=== PATIENT | female | born 1995 | race Caucasian/White ===

== ENCOUNTER 2018-03-06 20:38 | Emergency (ER) | payer OTHER ==
--- NOTE | 2018-03-06 20:46 | PDOC ---
History of Present Illness - General History Source: Patient Exam Limitations: No Limitations - History of Present Illness Initial Comments: 03/06/18 21:18 The patient is a 22 year old female, with a PMH of polycystic ovary syndrome and hypothyroidism , who presents to the emergency department for evaluation of an allergic reaction that occurred about 3 hours ago. The patient states she had apple and pineapple juice today and noticed a sudden onset of heartburn accompanied with generalized maculopapular diffuse rash to the upper and lower extremity, pruritic in nature. She then had facial erythema and edema develop. The patient reports she took 2 tablets of Benadryl (50 mg total) and noticed no relief. Denies any allergies in the past. The patient denies chest pain, headache and dizziness.Denies fever, chills, nausea, vomit, diarrhea and constipation. Allergies: NKDA Past surgical history: None reported Social history: Denies tobacco, alcohol and recreational use PCP: None reported <Jaun Peoples - Last Filed: 03/06/18 21:47> <Diana Sainz - Last Filed: 03/07/18 00:48> - General Chief Complaint: Allergic Reaction Stated Complaint: ALLERGIC REACTION Time Seen by Provider: 03/06/18 20:46 Past History <Jaun Peoples - Last Filed: 03/06/18 21:47> - Past Medical History COPD: No - Suicide/Smoking/Psychosocial Hx Smoking History: Never smoked Hx Alcohol Use: No Drug/Substance Use Hx: No <Diana Sainz - Last Filed: 03/07/18 00:48> - Past Medical History Allergies/Adverse Reactions: Allergies Allergy/AdvReac Type Severity Reaction Status Date / Time pineapple Allergy Severe Swelling Verified 03/06/18 21:10 Home Medications: Ambulatory Orders Levothyroxine [Synthroid -] 75 mcg PO DAILY 03/06/18 Norethindrone-E.estradiol-Iron [Loestrin Fe 1.5-30 Tablet] 1 each PO DAILY 03/06 metFORMIN HCL [Metformin HCl] 500 mg PO BID 03/06/18 Famotidine [Pepcid] 40 mg PO DAILY #10 tablet 03/07/18 Methylprednisolone [Medrol Dose Blu] 4 mg PO ASDIR #21 tablet 03/07/18 Review of Systems - Review of Systems Able to Perform ROS?: Yes Comments:: 03/06/18 21:18 GENERAL/CONSTITUTIONAL: No fever or chills. No weakness. HEAD, EYES, EARS, NOSE AND THROAT: +Sore throat. No change in vision. No ear pain or discharge. CARDIOVASCULAR: +SOB. No chest pain RESPIRATORY: +Wheezing. No cough or hemoptysis. GASTROINTESTINAL: No nausea, vomiting, diarrhea or constipation. GENITOURINARY: No dysuria, frequency, or change in urination. MUSCULOSKELETAL: No joint or muscle swelling or pain. No neck or back pain. SKIN: +Diffused generalized rash NEUROLOGIC: No headache, vertigo, loss of consciousness, or change in strength/ sensation. ENDOCRINE: No increased thirst. No abnormal weight change. HEMATOLOGIC/LYMPHATIC: No anemia, easy bleeding, or history of blood clots. ALLERGIC/IMMUNOLOGIC: No hives or skin allergy. <Jaun Peoples - Last Filed: 03/06/18 21:47> *Physical Exam - Vital Signs Last Vital Signs Temp Pulse Resp BP Pulse Ox 98.1 F 110 H 18 156/89 99 03/06/18 20:39 03/06/18 21:13 03/06/18 21:13 03/06/18 20:39 03/06/18 21:13 - Physical Exam Comments: 03/06/18 21:19 GENERAL: Awake, alert, and fully oriented, in no acute distress HEAD: No signs of trauma EYES: PERRLA, EOMI, sclera anicteric, conjunctiva clear ENT: +Mild edema to the midline uvula without asymmetry. Auricles normal inspection, hearing grossly normal, nares patent. NECK: Normal ROM, supple, no lymphadenopathy, JVD, or masses LUNGS: +Scatter bilateral expiratory wheezing. Breath sounds equal, clear to auscultation bilaterally. No crackles HEART: Regular rate and rhythm, normal S1 and S2, no murmurs, rubs or gallops ABDOMEN: Soft, nontender, normoactive bowel sounds. No guarding, no rebound. No masses EXTREMITIES: Normal range of motion, no edema. No clubbing or cyanosis. No cords, erythema, or tenderness NEUROLOGICAL: Cranial nerves II through XII grossly intact. Normal speech, normal gait SKIN: +Moderate generalized edema with erythema and periorbital edema. Maculopapular rash to the upper extremity, anterior and posterior thorax . <Jaun Peoples - Last Filed: 03/06/18 21:47> - Vital Signs Last Vital Signs Temp Pulse Resp BP Pulse Ox 98.1 F 118 H 18 156/89 100 03/06/18 20:39 03/06/18 20:39 03/06/18 20:39 03/06/18 20:39 03/06/18 20:39 <Diana Sainz - Last Filed: 03/07/18 00:48> Moderate Sedation - Procedure Monitoring Vital Signs: Procedure Monitoring Vital Signs Temperature 98.1 F 03/06/18 20:39 Pulse Rate 110 H 03/06/18 21:13 Respiratory Rate 18 03/06/18 21:13 Blood Pressure 156/89 03/06/18 20:39 O2 Sat by Pulse Oximetry (%) 99 03/06/18 21:13 <Jaun Peoples - Last Filed: 03/06/18 21:47> - Procedure Monitoring Vital Signs: Procedure Monitoring Vital Signs Temperature 98.1 F 03/06/18 20:39 Pulse Rate 118 H 03/06/18 20:39 Respiratory Rate 18 03/06/18 20:39 Blood Pressure 156/89 03/06/18 20:39 O2 Sat by Pulse Oximetry (%) 100 03/06/18 20:39 <Diana Sainz - Last Filed: 03/07/18 00:48> ED Treatment Course - Medications Given in the ED: ED Medications Discontinued Medications Generic Name Dose Route Start Last Admin Trade Name Miguelq PRN Reason Stop Dose Admin Diphenhydramine HCl 25 mg 03/06/18 20:48 03/06/18 20:55 Benadryl Injection - IVPUSH 03/06/18 20:49 25 mg ONCE ONE Administration Famotidine/Sodium Chloride 20 mg in 50 mls @ 100 mls/hr 03/06/18 20:48 21:05 Pepcid 20 Mg Premixed Ivpb - IVPB 03/06/18 21:17 100 mls/hr ONCE ONE Administration Methylprednisolone Sodium Succinate 125 mg 03/06/18 20:47 03/06/18 21:00 Solu-Medrol - IVPB 03/06/18 20:48 125 mg ONCE ONE Administration <Jaun Peoples - Last Filed: 03/06/18 21:47> Medical Decision Making - Medical Decision Making Documentation has been prepared under my direction and personally reviewed by me in its entirety. I attest that this documented accurately reflects all work, treatment, procedures and medical decision making performed by me. This 22-year-old woman presents with generalized ALLERGIC reaction with some facial edema and minimal uvular edema; scattered expiratory wheezing present on lung exam. She also has urticaria of the extremities and trunk. Apparent allergen was pineapple. Vital signs reveal mild tachycardia with excellent oxygenation on room air. Patient will receive Solu-Medrol 125 mg IV/25 mg Benadryl IV/20 mg Pepcid IV 03/07/18 00:18 Patient feels significantly better with decreased facial swelling and no further difficulty breathing. No further pruritus noted. Exam reveals marked decrease in periorbital and midface edema. Uvula is normal size and midline; lungs are clear with good air exchange. There is significant decrease in the urticarial rash. Patient will be discharged with prescriptions for Medrol Dosepak/Pepcid 40 mg daily sent to her pharmacy. Patient can also use Benadryl as needed for recurrent itching. She should return to the emergency room if she has any further facial swelling or difficulty swallowing/breathing. She should plan on following up with her doctor on March 09 <Diana Sainz - Last Filed: 03/07/18 00:48> *DC/Admit/Observation/Transfer - Attestations Scribe Attestion: 03/06/18 21:19 Documentation prepared by Jaun Peoples, acting as medical affairs manager for Diana Sainz MD. <Jaun Peoples - Last Filed: 03/06/18 21:47> <Diana Sainz - Last Filed: 03/07/18 00:48> Diagnosis at time of Disposition: Allergic reaction Qualifiers: Encounter type: initial encounter Qualified Code(s): T78.40XA - Allergy, unspecified, initial encounter - Discharge Dispostion Disposition: HOME Condition at time of disposition: Stable - Prescriptions Prescriptions: Famotidine [Pepcid] 40 mg PO DAILY #10 tablet Methylprednisolone [Medrol Dose Blu] 4 mg PO ASDIR #21 tablet - Patient Instructions Printed Discharge Instructions: DI for General Allergic Reactions Additional Instructions: Continue steroid medication , Medrol Dosepak: taper as directed (start tomorrow morning) Pepcid 40 mg daily for the next 10 days Benadryl 25 mg every 6 hours as needed for itching Return to ER immediately if you have any difficulty breathing/swallowing Follow-up with your doctor on Friday, 03/09 - Post Discharge Activity Forms/Work/School Notes: Back to Work
[2018-03-06] MEDS ORDERED: methylPREDNISolone NA SUCC 125 MG/2 ML VIAL IVPB ONE (20:47)
[2018-03-06] MEDS ORDERED: methylPREDNISolone NA SUCC 125 MG/2 ML VIAL ONE (20:48)
[2018-03-06] MEDS ORDERED: FAMOTIDINE 20 MG/50 ML IVPB 20 MG/50 ML MG IVPB ONE ×2 (20:48)
[2018-03-06 20:53] VITALS: BP 156/89; TEMP 98.1; BMI 33.3
[2018-03-06 21:14] VITALS: PULSE 110
== END 2018-03-07 00:20 | disposition home or self-care (01) ==
LOC: FER 20:38
PROC: 3E033GC Introduction of Other Therapeutic Substance into Peripheral Vein, Percutaneous Approach (ICD-10-PCS; principal; 2018-03-06)
DX: T78.40XA Allergy, unspecified, initial encounter (principal)
CPT/HCPCS: 99282-25

== ENCOUNTER 2022-05-29 15:57 | Emergency (ER) | payer OTHER ==
[2022-05-29 16:11] VITALS: BP 128/63; PULSE 100; RESP 18; TEMP 99.1; BMI 41.5
[2022-05-29] MEDS ORDERED: IBUPROFEN 600 MG TABLET (FP) PO ONE ×2 (16:35→16:59)
== END 2022-05-29 17:43 | disposition home or self-care (01) ==
LOC: FER 15:57
DX: S13.4XXA Sprain of ligaments of cervical spine, initial encounter (principal); V43.52XA Car driver injured in collision with other type car in traffic accident, initial encounter; Y93.I9 Activity, other involving external motion
CPT/HCPCS: 73030-TC-LT-FY; 73060-TC-RT-FY; 73070-TC-RT-FY; 73090-TC-RT-FY; 73130-TC-RT-FY; 99283-25

== ENCOUNTER 2022-11-15 15:37 | Emergency (ER) | payer OTHER ==
[2022-11-15 15:53] VITALS: BP 113/61; PULSE 72; RESP 20; TEMP 98.2; BMI 45.7
[2022-11-15] MEDS ORDERED: MECLIZINE HCL 25 MG TABLET (FP) PO ONE (16:22)
[2022-11-15] MEDS ORDERED: ACETAMINOPHEN 325 MG TABLET (FP) PO ONE (16:22)
[2022-11-15] MEDS ORDERED: ACETAMINOPHEN 325 MG TABLET (FP) ONE (16:48)
[2022-11-15] MEDS ORDERED: MECLIZINE HCL 12.5 MG TABLET ONE (16:48)
== END 2022-11-15 18:12 | disposition home or self-care (01) ==
LOC: FER 15:37
DX: R42 Dizziness and giddiness (principal); R11.0 Nausea
CPT/HCPCS: 99283-25

== ENCOUNTER 2022-11-27 04:21 | Day surgery (SDC) | payer OTHER ==
[2022-11-21 16:27] VITALS: BMI 44.9
[2022-11-27] MEDS ORDERED: PROPOFOL 40 ML ONE (09:03)
[2022-11-27] MEDS ORDERED: MIDAZOLAM HCL 2 MG/2 ML SINGLE DOSE VIAL ONE (09:04)
[2022-11-27] MEDS ORDERED: ONDANSETRON 4 MG/2 ML VIAL ONE (10:10)
[2022-11-27] MEDS ORDERED: DEXAMETHASONE SOD PHOSPHATE 4 MG/1 ML VIAL ONE (10:10)
[2022-11-27] MEDS ORDERED: oxyCODONE HCL 5 MG TABLET PO PRN (10:37)
[2022-11-27] MEDS ORDERED: ONDANSETRON 4 MG/2 ML VIAL IVPUSH PRN (10:37)
[2022-11-27] MEDS ORDERED: LACTATED RINGERS SOLUTION 1,000 ML IV SCH (10:45)
[2022-11-27] MEDS ORDERED: IBUPROFEN 400 MG TABLET (FP) PO PRN (11:16)
[2022-11-27] MEDS ORDERED: ACETAMINOPHEN 325 MG TABLET (FP) PO PRN (11:16)
[2022-11-27 11:46] VITALS: RESP 18; TEMP 97.3
[2022-11-27 12:53] VITALS: BP 136/82; PULSE 88
== END 2022-11-27 12:57 | disposition home or self-care (01) ==
LOC: JASU-SURG 04:21
PROVIDERS: ATTEND Obstetrics & Gynecology
PROC: 0UPD7HZ Removal of Contraceptive Device from Uterus and Cervix, Via Natural or Artificial Opening (ICD-10-PCS; 2022-11-27)
PROC: 0UBC7ZX Excision of Cervix, Via Natural or Artificial Opening, Diagnostic (ICD-10-PCS; principal; 2022-11-27 09:00)
DX: N87.9 Dysplasia of cervix uteri, unspecified (principal)
CPT/HCPCS: 81025; 88300-TC; 88307-TC; 88341-TC; 88342-TC; 94760